=== PATIENT | female | born 1965 | race Caucasian/White ===

== ENCOUNTER 2017-11-21 12:45 | Emergency (ER) | payer OTHER ==
[~2017-11-21] VITALS: Ht 160 cm; Wt 74.8 kg
[2017-11-21 12:55] VITALS: Ht 160 cm; Wt 74.8 kg
[2017-11-21 14:55] VITALS: BP 154/96
== END 2017-11-21 15:37 | disposition home or self-care (01) ==
LOC: ED 12:45
DX: I10 Essential (primary) hypertension (principal); J44.9 Chronic obstructive pulmonary disease, unspecified; Z88.2 Allergy status to sulfonamides